=== PATIENT | male | born 1975 | race Caucasian/White ===

== ENCOUNTER 2017-12-25 15:29 | Inpatient (IN) | payer MEDICAID, OTHER ==
[~2017-12-25] VITALS: Ht 172.7 cm; Wt 171.0 kg
[2017-12-25 16:47] LABS: BASOPHILS % (AUTO) 0.8 % (0.0-2.0); EOSINOPHILS % (AUTO) 0.3 % (1.0-6.0); HEMATOCRIT 32.6 % (41-53); HEMOGLOBIN 11.1 g/dL (13.5-17.5); LYMPHOCYTES # (AUTO) 1.4 K/uL (1.0-4.8); LYMPHOCYTES % (AUTO) 17.6 % (22.0-44.0); MEAN CORPUSCULAR HEMOGLOBIN 31.4 pg (26.0-34.0); MEAN CORPUSCULAR VOLUME 92 fL (80-100); MONOCYTES # (AUTO) 0.8 K/uL (0.1-1.0); MONOCYTES % (AUTO) 10.6 % (2.0-9.0); NEUTROPHILS # (AUTO) 5.7 K/uL (1.8-7.7); NEUTROPHILS % (AUTO) 70.7 % (40.0-70.0); PLATELET COUNT (AUTO) 412 K/uL (150-450); RED BLOOD CELL COUNT(AUTO) 3.52 MIL/uL (4.50-5.90)
[2017-12-25 16:57] LABS: ANION GAP 9 mmol/L (8-16); CALCIUM, TOTAL 8.5 mg/dL (8.8-10.5); CARBON DIOXIDE 28 mmol/L (22-29); CHLORIDE 105 mmol/L (98-107); CREATININE 1.13 mg/dL (0.60-1.30); GLOMERULAR FILTR. RATE CALC > 60 mL/min (>60); GLUCOSE,RANDOM 121 mg/dL (70-110); POTASSIUM 3.8 mmol/L (3.5-5.1); SODIUM SERUM 142 mmol/L (136-145); UREA NITROGEN, BLOOD 7 mg/dL (7-18)
[2017-12-25 17:03] LABS: ALANINE AMINOTRANSFERASE 110 U/L (12-78); ALKALINE PHOSPHATASE 49 U/L (46-116); ASPARTATE AMINOTRANSFERASE 74 U/L (15-37); BILIRUBIN,TOTAL 0.6 mg/dL (0.1-1.0); TOTAL PROTEIN, SERUM 6.6 g/dL (6.4-8.2)
[2017-12-25] MEDS ORDERED: MAGNESIUM SULFATE 2 GM, MVI, ADULT NO.1 WITH VIT K 10 ML, THIAMINE HCL 100 MG, FOLIC AC... IV ONE ×5 (17:45)
[2017-12-25] MEDS ORDERED: SODIUM CHLORIDE 0.9% 1,000 ML IV ONE (17:45)
[2017-12-25] MEDS ORDERED: DIAZEPAM 5 MG/ML 2 ML SYRINGE IVP ONE (17:45)
[2017-12-25] MEDS ORDERED: ZOLPIDEM TARTRATE 10 MG TABLET PO PRN (19:15)
[2017-12-25] MEDS ORDERED: ChlordiazePOXIDE HCL 25 MG CAPSULE PO ONE (19:15)
[2017-12-25] MEDS ORDERED: HALOPERIDOL 5 MG TABLET PO ONE (19:15)
[2017-12-25] MEDS ORDERED: LORazepam 2 MG TABLET PO PRN (19:15)
[2017-12-25] MEDS ORDERED: OLANZapine 5 MG RAPDIS TABLET PO PRN (19:15)
[2017-12-25] MEDS ORDERED: DiphenhydrAMINE HCL 25 MG CAPSULE PO ONE (19:15)
[2017-12-25] MEDS ORDERED: LORazepam 2 MG/ML VIAL ONE (21:26)
[2017-12-25] MEDS ORDERED: DiphenhydrAMINE HCL 50 MG/ML VIAL ONE (21:27)
[2017-12-25] MEDS ORDERED: HALOPERIDOL LACTATE 5 MG/ML VIAL ONE (21:27)
[2017-12-25] MEDS ORDERED: DiphenhydrAMINE HCL 50 MG/ML VIAL IM ONE (21:30)
[2017-12-25] MEDS ORDERED: LORazepam 2 MG/ML VIAL IM ONE (21:30)
[2017-12-25] MEDS ORDERED: HALOPERIDOL LACTATE 5 MG/ML VIAL IM ONE (21:30)
[2017-12-25 22:33] VITALS: BP 106/76
[2017-12-26 08:16] VITALS: BP 97/59
[2017-12-26 08:22] LABS: BASOPHILS % (AUTO) 1.1 % (0.0-2.0); HEMATOCRIT 30.7 % (41-53); HEMOGLOBIN 10.7 g/dL (13.5-17.5); LYMPHOCYTES # (AUTO) 1.5 K/uL (1.0-4.8); LYMPHOCYTES % (AUTO) 28.9 % (22.0-44.0); MEAN CORPUSCULAR HEMOGLOBIN 32.3 pg (26.0-34.0); MEAN CORPUSCULAR HGB CONC 34.7 G/dL (31.0-37.0); MEAN CORPUSCULAR VOLUME 93 fL (80-100); MONOCYTES # (AUTO) 0.6 K/uL (0.1-1.0); MONOCYTES % (AUTO) 10.9 % (2.0-9.0); NEUTROPHILS # (AUTO) 2.9 K/uL (1.8-7.7); NEUTROPHILS % (AUTO) 57.1 % (40.0-70.0); PLATELET COUNT (AUTO) 367 K/uL (150-450)
[2017-12-26 08:44] LABS: HEMOGLOBIN A1C 5.9 % (4.5-6.2)
[2017-12-26 08:53] LABS: ALANINE AMINOTRANSFERASE 85 U/L (12-78); ALBUMIN 2.4 g/dL (3.4-5.0); ALKALINE PHOSPHATASE 45 U/L (46-116); ANION GAP 7 mmol/L (8-16); ASPARTATE AMINOTRANSFERASE 57 U/L (15-37); BILIRUBIN,TOTAL 0.6 mg/dL (0.1-1.0); CALCIUM, TOTAL 7.5 mg/dL (8.8-10.5); CARBON DIOXIDE 27 mmol/L (22-29); CHLORIDE 109 mmol/L (98-107); CHOL/HDL RATIO 2.2 (4.2-7.3); CHOLESTEROL 110 mg/dL (131-200); CREATININE 0.77 mg/dL (0.60-1.30); FREE T4 (FREE THYROXINE) 1.26 ng/dL (0.76-1.46); GLOMERULAR FILTR. RATE CALC > 60 mL/min (>60); GLUCOSE,RANDOM 72 mg/dL (70-110); HDL CHOLESTEROL 51 mg/dL (40-60); LDL CHOL (CALC.) 48 mg/dL (0-130); POTASSIUM 3.6 mmol/L (3.5-5.1); SODIUM SERUM 143 mmol/L (136-145); THYROID STIMULATING HORMONE 1.72 uIU/mL (0.36-3.74); TOTAL PROTEIN, SERUM 5.5 g/dL (6.4-8.2); TRIGLYCERIDES 55 mg/dL (15-150); UREA NITROGEN, BLOOD 6 mg/dL (7-18)
[2017-12-26 16:08] VITALS: BP 109/65
[2017-12-26] MEDS ORDERED: GuaiFENesin/D-METHORPHAN [SUGAR-FREE] 200-20MG/10 ML SYRUP UDCUP PO PRN (17:15)
[2017-12-26] MEDS ORDERED: ACETAMINOPHEN 325 MG TABLET PO PRN (17:15)
[2017-12-26] MEDS ORDERED: TUBERCULIN, PURIFIED PROTEIN DERIVATIVE 5 TU/0.1 ML SYG ID ONE (17:15)
[2017-12-26] MEDS ORDERED: HydrOXYzine PAMOATE 50 MG CAPSULE PO PRN (17:15)
[2017-12-26] MEDS ORDERED: MAGNESIUM HYDROXIDE SUSPENSION 30 ML UDCUP PO PRN (17:15)
[2017-12-26] MEDS ORDERED: PROMETHAZINE HCL 25 MG TABLET PO PRN (17:15)
[2017-12-26] MEDS ORDERED: LOPERAMIDE HCL 2 MG CAPSULE PO PRN (17:15)
[2017-12-26] MEDS ORDERED: MAG HYDROX/AL HYDROX/SIMETH ES 30 ML SUSPENSION UDCUP PO PRN (17:15)
[2017-12-26] MEDS: OLANZapine 7.5 MG TABLET PO SCH ×2 (20:57)
[2017-12-27 06:37] VITALS: BP 119/68
[2017-12-27 08:19] VITALS: BP 116/66
[2017-12-27] MEDS: THIAMINE HCL 100 MG TABLET PO SCH ×2 (09:35→17:23)
[2017-12-27] MEDS: FOLIC ACID 1 MG TABLET PO SCH (09:36)
[2017-12-27] MEDS: MULTIVITAMINS WITH MINERALS, THERAPEUTIC TABLET PO SCH (09:36)
[2017-12-27 16:11] VITALS: BP 116/65
[2017-12-27] MEDS: OLANZapine 10 MG TABLET PO SCH (21:39)
[2017-12-28 06:21] VITALS: BP 108/68
[2017-12-28 08:04] VITALS: BP 111/66
[2017-12-28] MEDS: MULTIVITAMINS WITH MINERALS, THERAPEUTIC TABLET PO SCH (09:06)
[2017-12-28] MEDS: FOLIC ACID 1 MG TABLET PO SCH (09:06)
[2017-12-28] MEDS: THIAMINE HCL 100 MG TABLET PO SCH ×2 (09:06→16:54)
[2017-12-28 16:00] VITALS: BP 110/69
[2017-12-28] MEDS: OLANZapine 10 MG TABLET PO SCH (20:18)
[2017-12-29 06:10] VITALS: BP 110/67
[2017-12-29 08:22] VITALS: BP 112/65
[2017-12-29] MEDS: FOLIC ACID 1 MG TABLET PO SCH (08:55)
[2017-12-29] MEDS: MULTIVITAMINS WITH MINERALS, THERAPEUTIC TABLET PO SCH (08:55)
[2017-12-29] MEDS: THIAMINE HCL 100 MG TABLET PO SCH ×2 (08:55→17:11)
[2017-12-29 16:00] VITALS: BP 100/60
[2017-12-29] MEDS ORDERED: OLAN10TA20 PO (16:36)
== END 2017-12-29 19:09 | disposition home or self-care (01) | DRG 751 ==
LOC: EDSEX 15:31 → EMS 15:31 → B2S 20:30 → B3A 22:55
PROVIDERS: ADMIT Psychiatry & Neurology Psychiatry; ATTEND Psychiatry & Neurology Psychiatry
DX: F29 Unspecified psychosis not due to a substance or known physiological condition (principal); E46 Unspecified protein-calorie malnutrition; F17.210 Nicotine dependence, cigarettes, uncomplicated; L98.499 Non-pressure chronic ulcer of skin of other sites with unspecified severity; D64.9 Anemia, unspecified; S60.512A Abrasion of left hand, initial encounter; S60.420A Blister (nonthermal) of right index finger, initial encounter; X58.XXXA Exposure to other specified factors, initial encounter; Y93.89 Activity, other specified; Z59.0 Homelessness; Y92.89 Other specified places as the place of occurrence of the external cause; Z91.19 Patient's noncompliance with other medical treatment and regimen; Z68.43 Body mass index [BMI] 50.0-59.9, adult; Y99.8 Other external cause status; Z79.899 Other long term (current) drug therapy
CPT/HCPCS: 83036; 84439; 84443; 96374; 99285; G0480; J1200; J1630; J2060; J3411; J3475; J3490; J7030